=== PATIENT | female | born 1955 | race Caucasian/White ===

== ENCOUNTER 2016-11-04 16:43 | Emergency (ER) | payer OTHER ==
[~2016-11-04] VITALS: Ht 162.6 cm; Wt 102.3 kg
[2016-11-04] MEDS ORDERED: ONDA8TAB8 PO (16:53)
[2016-11-04] MEDS ORDERED: TRAM50TA2 (16:53)
[2016-11-04] MEDS ORDERED: LEVO112T2 (16:53)
[2016-11-04] MEDS ORDERED: FLUO20CA19 (16:53)
[2016-11-04] MEDS ORDERED: MORPHINE 4 MG/ML 1ML SYRINGE IV PRN (17:45)
[2016-11-04] MEDS ORDERED: NS 1,000 ML IV ONE (17:45)
[2016-11-04] MEDS ORDERED: ONDANSETRON 4MG/2ML VIAL (J2405) IV ONE (17:45)
[2016-11-04 18:01] LABS: BASO % 0.2 % (0.0-1.0); EOS # 0.1 K/mm3 (0.0-0.50); EOS % 0.6 % (0.0-3.0); LARGE UNSTAINED CELL # 0.1 K/mm3 (0.0-0.4); LARGE UNSTAINED CELL % 0.7 % (0.0-4.0); LYMPH # 0.8 K/mm3 (1.5-4.5); LYMPH % 6.6 % (24.0-44.0); MEAN CORPUSCULAR HEMOGLOBIN 31.6 pg (27.0-33.0); MEAN CORPUSCULAR HGB CONC 35.2 g/dl (32.0-36.5); MEAN CORPUSCULAR VOLUME 89.9 fl (80.0-96.0); MONO # 0.5 K/mm3 (0.0-0.8); MONO % 4.1 % (0.0-5.0); NEUTROPHILS # 9.7 K/mm3 (1.8-7.7); NEUTROPHILS % 87.7 % (36.0-66.0); PLATELET COUNT, AUTOMATED 281 k/mm3 (150-450); RED CELL DISTRIBUTION WIDTH 13.4 % (11.5-14.5); WHITE BLOOD COUNT 11.1 K/mm3 (4.0-10.0)
[2016-11-04 18:09] LABS: INR 1.03
[2016-11-04 18:22] LABS: ALBUMIN 3.6 GM/DL (3.2-5.2); ALBUMIN/GLOBULIN RATIO 0.95 (1.00-1.93); ALKALINE PHOSPHATASE 166 U/L (45-117); ALT/SGPT 473 U/L (12-78); AMYLASE 42 U/L (25-115); ANION GAP 11 MEQ/L (8-16); AST/SGOT 332 U/L (15-37); BILIRUBIN,DIRECT 5.8 MG/DL (0.0-0.2); BILIRUBIN,TOTAL 7.4 MG/DL (0.2-1.0); BLOOD UREA NITROGEN 14 MG/DL (7-18); CALCIUM LEVEL 8.8 MG/DL (8.8-10.2); CARBON DIOXIDE LEVEL 21 MEQ/L (21-32); CHLORIDE LEVEL 106 MEQ/L (98-107); CREATININE FOR GFR 0.81 MG/DL (0.55-1.02); GLOMERULAR FILTRATION RATE > 60.0 (>45); GLUCOSE, FASTING 115 MG/DL (80-110); POTASSIUM SERUM 3.6 MEQ/L (3.5-5.1); SODIUM LEVEL 138 MEQ/L (136-145); TOTAL PROTEIN 7.4 GM/DL (6.4-8.2)
--- NOTE | 2016-11-04 18:59 | REP ---
Clinical: Acute abdominal pain with history of gallstones. Technique: Real time thurston scale ultrasound examination using curved array transducer. Findings: There is evidence for multiple gallstones within a contracted gallbladder demonstrating mild wall thickening and sonographic positive Coe's sign. Choledocholithiasis is also appreciated along with common bile duct dilatation to 10 mm. Findings are compatible with acute cholecystitis and should be correlated clinically. Liver and visualized pancreas are normal in contour, size, echogenicity and without focal hepatic or pancreatic lesion identified. The right kidney is normal in reniform shape without hydronephrosis and measures 10.4 x 5.0 x 3.8 cm. No ascites in the visualized right upper quadrant. Impression: Cholelithiasis along with choledocholithiasis, gallbladder wall thickening and dilated common bile duct to 10 mm as well as positive sonographic Coe's sign is compatible with acute cholecystitis and requires correlation. Signed by Jayant Correia MD 11/04/2016 06:51 P
[2016-11-04] MEDS ORDERED: TRAM50TA2 PO (19:11)
[2016-11-04] MEDS ORDERED: FLUO20CA19 PO (19:11)
[2016-11-04] MEDS ORDERED: LEVO112T25 PO (19:11)
[2016-11-04] MEDS ORDERED: ZOFR8TAB PO (19:11)
[2016-11-04] MEDS ORDERED: VITATAB11 PO (19:11)
[2016-11-04] MEDS ORDERED: PIPERACILLIN/TAZOBACTAM SOD 3.375 GM in D5W MINI-BAG PLUS 50 ML IV ONE (19:15)
--- NOTE | 2016-11-04 19:58 | ECGEPIP ---
Stationary ECG Study [facility] - ED Test Date: 2016-11-04 Pat Name: ELSIE CASTILLO Department: Room: - Gender: F Linux Engineer: : [id number] Requested By: Magalys Kaufman Order Number: [id number] Reading MD: Magalys Kaufman Measurements Intervals [place] Rate: 72 P: 59 VT: 185 QRS: -38 QRSD: 88 T: 64 QT: 378 QTc: 415 Interpretive Statements SINUS RHYTHM MARKED LEFT AXIS DEVIATION NO OLD ECG FOR COMPARISON Electronically Signed On 11-04-2016 19:58:08 EDT by Magalys Kaufman
[2016-11-04 20:05] LABS: MICROSCOPIC INDICATED? MAN YES (NO)
[2016-11-04 20:17] LABS: BACTERIA, URINE NONE SEEN; HYALINE CAST, URINE NONE SEEN /lpf (0-1); RBC, URINE NONE SEEN /hpf (0-3); SQUAMOUS EPITHELIAL CELL URINE SMALL AMOUNT /hpf (SMALL AMT); WBC, URINE NONE SEEN /hpf (0-3)
[2016-11-04 20:18] LABS: MICROSCOPIC EXAM PERFORMED
[2016-11-04 21:31] VITALS: BP 124/59
== END 2016-11-04 21:34 | disposition short-term general hospital (02) ==
LOC: M ED 16:43
DX: K80.41 Calculus of bile duct with cholecystitis, unspecified, with obstruction (principal)
CPT/HCPCS: 76705; 80048; 80076; 81000; 82150; 82550; 82553; 83605; 83690; 85025; 85610; 85730; 87040; 87086; 93000; 93041; 96361; 96365; 96375; 99285; J2405; J2543

== ENCOUNTER → 2021-09-22 | Outpatient (REF) | payer OTHER ==
[~2021-09-22] MED LIST: FLUO20CA22; FLUO20CA22 PO; LEVO112T2; LEVO112T25 PO; ONDA8TAB8 PO; TRAM50TA2; TRAM50TA2 PO; VITATAB11 PO; ZOFR8TAB24 PO
== END ==
LOC: M SFHCDERM 13:42
PROVIDERS: ATTEND Nurse Practitioner Family
DX: L57.0 Actinic keratosis (principal)

== ENCOUNTER → 2024-12-15 | Outpatient (CLI) | payer MEDICARE ==
[~2024-12-15] MED LIST changes: +FLUO-365; +FLUO-365 PO; -FLUO20CA22; -FLUO20CA22 PO; +ONDA-284 PO; -ONDA8TAB8 PO
== END ==
LOC: M CARPUL 12:28
PROVIDERS: ATTEND Registered Nurse
DX: R06.02 Shortness of breath (principal); R94.31 Abnormal electrocardiogram [ECG] [EKG]